=== PATIENT | female | born 1990 | race Hispanic/Latino ===

== ENCOUNTER 2016-03-31 13:53 | Emergency (ER) | payer OTHER ==
[~2016-03-31] VITALS: Ht 160 cm; Wt 136.3 kg
[2016-03-31] MEDS ORDERED: TRAMADOL HCL50 MG PO (14:59)
[2016-03-31 15:21] VITALS: BP 124/84
== END 2016-03-31 15:26 | disposition home or self-care (01) ==
LOC: EME 13:53
DX: J45.901 Unspecified asthma with (acute) exacerbation (principal); S20.219A Contusion of unspecified front wall of thorax, initial encounter; S80.01XA Contusion of right knee, initial encounter; W01.198A Fall on same level from slipping, tripping and stumbling with subsequent striking against other object, initial encounter
CPT/HCPCS: 71020; 94640; 94664; 99281; 99284; J1100